=== PATIENT | male | born 1955 | race Caucasian/White ===

== ENCOUNTER 2017-03-01 12:06 | Emergency (ER) | payer MEDICAID, OTHER ==
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
--- NOTE | 2017-03-01 14:25 | RAD ---
Indication: Right lateral abdominal pain. CT of the chest, abdomen and pelvis was performed without oral or IV contrast administration. Coronal and sagittal reconstructed images were obtained. Inferior thyroid lobes are unremarkable. There are small subcarinal lymph nodes measuring up to 7 mm. Pretracheal lymph node measures up to 9 mm, AP window lymph node measures up to 11 mm. Heart demonstrates no pericardial effusion. Patient is status post aortic valve replacement. The trachea and major bronchi appear patent. The lung cortes demonstrate no evidence of alveolar consolidation. No pleural fluid is identified. No obvious rib fractures are identified. The visualized spine demonstrates no evidence of compression fracture. CT of the abdomen and pelvis demonstrates liver to be normal in size. Calcified granuloma in the dome of the right lobe of liver. No intrahepatic ductal dilatation is noted. The gallbladder demonstrates no calcified gallstones. No pericholecystic fluid or wall thickening is noted. The spleen is normal in size. The pancreas demonstrates no mass or pancreatic duct dilatation. No adrenal lesions are noted. The kidneys demonstrate no hydronephrosis in either kidney. No dilated loops of bowel are noted. CT of the pelvis demonstrates no pelvic or retroperitoneal adenopathy. The prostate and urinary bladder are unremarkable. No dilated loops of bowel are noted. No hernias are noted. No free fluid is identified. IMPRESSION: Emphysematous changes of the lung cortes. Old granulomatous disease of liver. No abnormal masses or fluid collections are noted. No obvious fracture of the ribs is noted. No evidence of obstructive uropathy is noted.
[2017-03-01 14:32] VITALS: BP 126/78
== END 2017-03-01 15:03 | disposition home or self-care (01) ==
LOC: UCEAST 12:06
DX: R10.9 Unspecified abdominal pain (principal)
CPT/HCPCS: 71250; 74176; 99202; G0463